=== PATIENT | female | born 1970 | race Native Hawaiian/Other Pacific Islander ===

== ENCOUNTER 2022-03-24 16:23 | Emergency (ER) | payer BC ==
[~2022-03-24] VITALS: Ht 170.2 cm; Wt 90.7 kg
[2022-03-24 16:23] VITALS: TEMP 98
[2022-03-24 17:21] LABS: PLATELET COUNT 280 K/uL (152-353)
[2022-03-24 17:32] LABS: POTASSIUM 3.6 mmol/L (3.6-5.2)
[2022-03-24 17:49] LABS: PARTIAL THROMBOPLASTIN TIME 28.7 SECONDS (24.5-33.6)
[2022-03-24 21:30] VITALS: BP 150/78
== END 2022-03-24 21:30 | disposition short-term general hospital (02) ==
LOC: ED 16:23
PROVIDERS: Emergency Medicine
DX: I63.9 Cerebral infarction, unspecified (principal); I10 Essential (primary) hypertension; Z11.52 Encounter for screening for COVID-19
CPT/HCPCS: 80053; 84484; 85027; 85610; 85730; 87635; 93005; 96360; 96361; 96374; 99285; J3360; Q9963; U0003

== ENCOUNTER 2022-09-21 15:41 | Outpatient (CLI) | payer BC | END 2022-09-21 17:00 | disposition home or self-care (01) | LOC: RAD 15:41 | PROVIDERS: ATTEND Internal Medicine | DX: N95.8 Other specified menopausal and perimenopausal disorders (principal) ==